=== PATIENT | female | born 1990 | race Caucasian/White ===

== ENCOUNTER 2019-02-13 16:50 | Outpatient (CLI) | payer OTHER ==
[2019-02-13] MEDS: LACTATED RINGER'S 1,000 ML IV ×2 (17:19→20:47)
== END 2019-02-13 22:57 | disposition home or self-care (01) ==
LOC: OBT 16:50 → L-D 16:51 → OBT 22:57
DX: O26.93 Pregnancy related conditions, unspecified, third trimester (principal); Z3A.36 36 weeks gestation of pregnancy
CPT/HCPCS: 76815